=== PATIENT | male | born 1960 | race African-American/Black ===

== ENCOUNTER 2019-09-01 12:58 | Emergency (ER) | payer MEDICARE, OTHER ==
[~2019-09-01] VITALS: Ht 175.3 cm; Wt 91.0 kg
[~2019-09-01 12:58] MED LIST: ALBU18HF2 IH; ALBU5SOL6; AMBIEN; ATROVUD; COMBIV; FLUT1DIS; METF-415 PO; TIOT18CA3
[2019-09-01] MEDS ORDERED: ALBUTEROL (0.083%) 2.5MG/3ML NEB HHN STA (13:37)
[2019-09-01] MEDS ORDERED: METHYLPREDNISOLONE SOD SUCC 125 MG/2 ML VIAL IV STA (13:37)
[2019-09-01] MEDS ORDERED: IPRATROPIUM BROMIDE (0.02%) 0.5MG/2.5ML NEB HHN STA (13:37)
[2019-09-01 14:46] LABS: HEMATOCRIT. 43.7 % (42.0-52.0); HEMOGLOBIN. 14.3 g/dL (14.0-18.0); MEAN CORPUSCULAR HEMOGLOBIN 26.5 pg (28.0-32.0); MEAN CORPUSCULAR VOLUME 81.3 fL (80.0-94.0); PLATELET 209 x1000/uL (130-400); RED BLOOD CELL COUNT 5.38 mill/uL (4.7-6.1); RED CELL DISTRIBUTION WIDTH 15.2 % (11.6-14.6)
[2019-09-01 14:54] LABS: CHLORIDE 109 mEq/L (98-107)
[2019-09-01 17:04] LABS: ATYPICAL LYMPHOCYTES 3
[2019-09-01 17:05] LABS: PLATELET ESTIMATE NORMAL
[2019-09-01 17:20] VITALS: BP 131/62
== END 2019-09-01 17:38 | disposition home or self-care (01) ==
LOC: ER 12:58
DX: J44.1 Chronic obstructive pulmonary disease with (acute) exacerbation (principal); E11.9 Type 2 diabetes mellitus without complications; Z79.899 Other long term (current) drug therapy
CPT/HCPCS: 36415; 71045; 80053; 85025; 93005; 94644; 96374; 99285; J2930; J7611; Z7610

== ENCOUNTER 2019-10-19 23:31 | Emergency (ER) | payer MEDICARE ==
[~2019-10-19] VITALS: Ht 177.8 cm; Wt 87.1 kg
[2019-10-20] MEDS ORDERED: ALBUTEROL (0.083%) 2.5MG/3ML NEB HHN STA (01:01)
[2019-10-20] MEDS ORDERED: IPRATROPIUM BROMIDE (0.02%) 0.5MG/2.5ML NEB HHN STA (01:01)
[2019-10-20] MEDS ORDERED: PREDNISONE 20MG TABLET PO STA (01:01)
[2019-10-20] MEDS ORDERED: ACETAMINOPHEN WITH CODEINE 300/30MG TABLET PO ONE (01:15)
[2019-10-20 03:50] VITALS: BP 103/76
== END 2019-10-20 03:52 | disposition home or self-care (01) ==
LOC: ER 23:31
DX: J44.1 Chronic obstructive pulmonary disease with (acute) exacerbation (principal)
CPT/HCPCS: 71045; 82962; 93005; 94640; 99284; J7512; J7611; Z7610

== ENCOUNTER 2020-12-03 08:32 | Emergency (ER) | payer MEDICAID, MEDICARE, OTHER ==
[~2020-12-03] VITALS: Ht 177.8 cm; Wt 69.0 kg
[2020-12-03 08:38] VITALS: BP 132/94
[2020-12-03] MEDS ORDERED: GABAPENTIN 100MG CAPSULE PO ONE (09:00)
[2020-12-03] MEDS ORDERED: GABAPENTIN 400MG CAPSULE PO SCH (09:15)
[2020-12-03 09:25] LABS: HEMATOCRIT. 45.5 % (42.0-52.0); MEAN CORPUSCULAR HEMOGLOBIN 29.2 pg (28.0-32.0); MEAN CORPUSCULAR VOLUME 88.4 fL (80.0-94.0); MEAN PLATELET VOLUME 10.3 fl (7.4-10.4); PLATELET 210 x1000/uL (130-400); RED BLOOD CELL COUNT 5.14 mill/uL (4.7-6.1); RED CELL DISTRIBUTION WIDTH 14.3 % (11.6-14.6)
[2020-12-03 09:31] LABS: CHLORIDE 104 mEq/L (98-107)
[2020-12-03 10:05] LABS: PLATELET ESTIMATE NORMAL
== END 2020-12-03 10:12 | disposition home or self-care (01) ==
LOC: ER 09:05
DX: R63.4 Abnormal weight loss (principal); E11.40 Type 2 diabetes mellitus with diabetic neuropathy, unspecified; J44.9 Chronic obstructive pulmonary disease, unspecified; R03.0 Elevated blood-pressure reading, without diagnosis of hypertension
CPT/HCPCS: 36415; 71045; 80053; 85025; 93005; 99285

== ENCOUNTER 2020-12-28 11:03 | Emergency (ER) | payer OTHER ==
[~2020-12-28] VITALS: Ht 177.8 cm; Wt 69.0 kg
[2020-12-28] MEDS ORDERED: METHYLPREDNISOLONE SOD SUCC 125 MG/2 ML VIAL IV STA (11:48)
[2020-12-28] MEDS ORDERED: IPRATROPIUM BROMIDE (0.02%) 0.5MG/2.5ML NEB HHN STA (11:48)
[2020-12-28] MEDS ORDERED: KETOROLAC 15MG/ML VIAL IV ONE (12:00)
[2020-12-28] MEDS ORDERED: MAGNESIUM 2 G PREMIX 50 ML IV ONE (12:00)
[2020-12-28] MEDS: ALBUTEROL (0.083%) 2.5MG/3ML NEB HHN SCH ×3 (13:04→14:04)
[2020-12-28] MEDS ORDERED: P50 MT (14:42)
[2020-12-28] MEDS ORDERED: ALBU6.7H9 INH (14:42)
[2020-12-28] MEDS ORDERED: GABA800T97 MT (14:42)
[2020-12-28 14:59] VITALS: BP 111/72
== END 2020-12-28 15:51 | disposition home or self-care (01) ==
LOC: ER 11:30
DX: J44.1 Chronic obstructive pulmonary disease with (acute) exacerbation (principal); E11.9 Type 2 diabetes mellitus without complications; Z98.890 Other specified postprocedural states; Z79.84 Long term (current) use of oral hypoglycemic drugs
CPT/HCPCS: 71045; 93005; 94640; 96365; 96366; 96375; 99285; J1885; J2930; J3475; Z7610

== ENCOUNTER 2020-12-30 17:25 | Inpatient (IN) | payer OTHER ==
[~2020-12-30] VITALS: Ht 177.8 cm; Wt 70.8 kg
[~2020-12-30 17:25] MED LIST changes: +ALBU6.7H9 INH; +GABA800T97 MT; +P50 MT
[2020-12-30] MEDS ORDERED: IPRATROPIUM BROMIDE (0.02%) 0.5MG/2.5ML NEB HHN STA (18:00)
[2020-12-30] MEDS ORDERED: METHYLPREDNISOLONE SOD SUCC 125 MG/2 ML VIAL IV STA (18:00)
[2020-12-30] MEDS ORDERED: MAGNESIUM 2 G PREMIX 50 ML IV ONE (18:00)
[2020-12-30] MEDS ORDERED: GABAPENTIN 400MG CAPSULE PO ONE (18:00)
[2020-12-30] MEDS ORDERED: ALBUTEROL (0.083%) 2.5MG/3ML NEB HHN SCH (18:00)
[2020-12-30] MEDS ORDERED: DOXYCYCLINE HYCLATE 100 MG/VIAL IV ONE (19:15)
[2020-12-30 19:59] LABS: BASOPHILS % 1.3 % (0.0-2.0); EOSINOPHILS % 12.2 % (0.0-5.0); LYMPHOCYTES % 16.5 % (20.0-50.0); MEAN CORPUSCULAR HEMOGLOBIN 28.4 pg (28.0-32.0); MEAN CORPUSCULAR VOLUME 88.7 fL (80.0-94.0); MEAN PLATELET VOLUME 9.7 fl (7.4-10.4); MONOCYTES % 4.2 % (2.0-8.0); NEUTROPHILS % 65.8 % (40.0-76.0); PLATELET 216 x1000/uL (130-400); RED BLOOD CELL COUNT 5.31 mill/uL (4.7-6.1); RED CELL DISTRIBUTION WIDTH 15.3 % (11.6-14.6)
[2020-12-30] MEDS ORDERED: DOXYCYCLINE 100MG in DEXTROSE 5% WATER 100ML IV NR (20:00)
[2020-12-30 20:03] LABS: CHLORIDE 106 mEq/L (98-107)
[2020-12-30] MEDS ORDERED: KETOROLAC 15MG/ML VIAL IV ONE (23:30)
[2020-12-31] VITALS (8 sets, daily range): BP systolic 95–151; BP diastolic 74–98
[2020-12-31] MEDS ORDERED: DEXTROSE 50% WATER 50ML SYRINGE IV PRN ×2 (02:15)
[2020-12-31] MEDS ORDERED: ZOLPIDEM TARTRATE 5MG TABLET PO PRN (02:15)
[2020-12-31] MEDS ORDERED: LEVOFLOXACIN 500MG PREMIX 100 ML IV SCH (04:00)
[2020-12-31] MEDS: IPRATROPIUM/ALBUTEROL 0.5-3(2.5)MG/3ML NEB HHN SCH ×5 (04:09→23:48)
[2020-12-31] MEDS: METHYLPREDNISOLONE SOD SUCC 125 MG/2 ML VIAL IV SCH ×3 (06:00→21:49)
[2020-12-31 06:44] LABS: BASOPHILS % 0.6 % (0.0-2.0); EOSINOPHILS % 0.2 % (0.0-5.0); HEMATOCRIT. 42.3 % (42.0-52.0); LYMPHOCYTES % 10.4 % (20.0-50.0); MEAN CORPUSCULAR HEMOGLOBIN 29.3 pg (28.0-32.0); MEAN CORPUSCULAR VOLUME 88.6 fL (80.0-94.0); MEAN PLATELET VOLUME 10.5 fl (7.4-10.4); MONOCYTES % 4.9 % (2.0-8.0); NEUTROPHILS % 83.9 % (40.0-76.0); PLATELET 238 x1000/uL (130-400); RED BLOOD CELL COUNT 4.77 mill/uL (4.7-6.1); RED CELL DISTRIBUTION WIDTH 15.2 % (11.6-14.6)
[2020-12-31 06:55] LABS: CHLORIDE 103 mEq/L (98-107)
[2020-12-31 07:03] LABS: LDL CHOLESTEROL 96 mg/dL (5-100)
[2020-12-31 07:04] LABS: HDL CHOLESTEROL 97 mg/dL (40-59)
[2020-12-31] MEDS: BLOOD SUGAR DIAGNOSTIC STRIP TEST SCH ×4 (08:01→20:22)
[2020-12-31] MEDS: INSULIN LISPRO 100 UNITS/ML SUBCUT SCH ×4 (08:33→20:39)
[2020-12-31] MEDS: ASPIRIN 81MG TABLET PO SCH (08:47)
[2020-12-31] MEDS: TRAMADOL 50MG TABLET PO SCH ×2 (08:47→17:00)
[2020-12-31] MEDS: GABAPENTIN 400MG CAPSULE PO SCH ×3 (08:48→17:00)
[2020-12-31] MEDS ORDERED: MEDICATION NOT ON FORMULARY EA (Gabapentin 1 TAB) MT SCH (09:00)
[2020-12-31] MEDS ORDERED: GABAPENTIN 400MG CAPSULE PO SCH (09:00)
[2020-12-31] MEDS: BUDESONIDE 0.5MG/2ML NEB HHN SCH ×2 (09:20→21:08)
[2020-12-31] MEDS: DIATR MEGLU/DIATRIZOATE SOLN 30ML PO NR (17:28)
[2020-12-31] MEDS: HYDROCODONE/ACETAMINOPHEN 5/325MG TABLET PO PRN ×2 (17:34→22:34)
[2020-12-31] MEDS ORDERED: IOHEXOL-300 100 ML BOTTLE ONE (19:31)
[2020-12-31] MEDS: ENOXAPARIN 40MG/0.4ML SYR SUBCUT SCH (20:35)
[2020-12-31] MEDS: ATORVASTATIN CALCIUM 20MG TABLET PO SCH (20:35)
[2021-01-01] VITALS (11 sets, daily range): BP systolic 99–138; BP diastolic 56–96
[2021-01-01] MEDS: METHYLPREDNISOLONE SOD SUCC 125 MG/2 ML VIAL IV SCH ×3 (06:07→22:00)
[2021-01-01 06:42] LABS: HEMOGLOBIN. 13.4 g/dL (14.0-18.0); MEAN CORPUSCULAR HEMOGLOBIN 28.6 pg (28.0-32.0); MEAN PLATELET VOLUME 10.1 fl (7.4-10.4); PLATELET 245 x1000/uL (130-400); RED BLOOD CELL COUNT 4.66 mill/uL (4.7-6.1); RED CELL DISTRIBUTION WIDTH 15.3 % (11.6-14.6)
[2021-01-01] MEDS: HYDROCODONE/ACETAMINOPHEN 5/325MG TABLET PO PRN ×2 (06:53→22:43)
[2021-01-01 06:54] LABS: CHLORIDE 100 mEq/L (98-107)
[2021-01-01 07:02] LABS: PHOSPHORUS 3.8 mg/dL (2.5-4.9)
[2021-01-01 07:19] LABS: HEPATITIS B SURFACE ANTIGEN NEGATIVE
[2021-01-01 07:28] LABS: VITAMIN B12 SERUM 566 pg/mL (211-911)
[2021-01-01 07:30] LABS: FOLIC ACID (FOLATE) SERUM > 20.00 ng/mL (>5.38)
[2021-01-01 07:49] LABS: HEPATITIS A AB IGM NEGATIVE (NEGATIVE)
[2021-01-01] MEDS: BLOOD SUGAR DIAGNOSTIC STRIP TEST SCH ×4 (07:55→21:54)
[2021-01-01] MEDS: INSULIN LISPRO 100 UNITS/ML SUBCUT SCH ×4 (08:05→22:01)
[2021-01-01] MEDS: ASPIRIN 81MG TABLET PO SCH (08:06)
[2021-01-01] MEDS: PANTOPRAZOLE SODIUM 40 MG/VIAL IV SCH (08:06)
[2021-01-01] MEDS: GABAPENTIN 400MG CAPSULE PO SCH ×3 (08:06→22:00)
[2021-01-01] MEDS: TRAMADOL 50MG TABLET PO SCH ×2 (08:06→18:04)
[2021-01-01] MEDS ORDERED: NON FORMULARY PATIENT HOME MED ORI SCH (09:00)
[2021-01-01] MEDS: BUDESONIDE 0.5MG/2ML NEB HHN SCH (09:12)
[2021-01-01] MEDS: IPRATROPIUM/ALBUTEROL 0.5-3(2.5)MG/3ML NEB HHN SCH ×3 (09:12→20:36)
[2021-01-01 13:17] LABS: PLATELET ESTIMATE NORMAL
[2021-01-01] MEDS ORDERED: INSULIN GLARGINE UD 100 UNITS/ML SYR SUBCUT NR (14:00)
[2021-01-01] MEDS ORDERED: P20 MT (16:43)
[2021-01-01] MEDS ORDERED: IPRA4AER INH (16:43)
[2021-01-01] MEDS ORDERED: ALBU18HF2 IH (16:43)
[2021-01-01] MEDS ORDERED: UMEC1DIS INH (16:43)
[2021-01-01] MEDS: DIATR MEGLU/DIATRIZOATE SOLN 30ML PO NR (17:50)
[2021-01-01] MEDS: ENOXAPARIN 40MG/0.4ML SYR SUBCUT SCH (18:04)
[2021-01-01] MEDS: ATORVASTATIN CALCIUM 20MG TABLET PO SCH (22:00)
[2021-01-02] VITALS (10 sets, daily range): BP systolic 110–158; BP diastolic 65–102
[2021-01-02] MEDS: IPRATROPIUM/ALBUTEROL 0.5-3(2.5)MG/3ML NEB HHN SCH ×4 (00:40→13:05)
[2021-01-02] MEDS: METHYLPREDNISOLONE SOD SUCC 125 MG/2 ML VIAL IV SCH ×2 (05:32→13:00)
[2021-01-02] MEDS: GABAPENTIN 400MG CAPSULE PO SCH ×2 (05:32→13:00)
[2021-01-02] MEDS: BLOOD SUGAR DIAGNOSTIC STRIP TEST SCH ×2 (07:48→12:17)
[2021-01-02 07:58] LABS: *AMPHETAMINES SCREEN URINE NEGATIVE (NEGATIVE); *BARBITURATES SCREEN URINE NEGATIVE (NEGATIVE); *BENZODIAZEPINES SCREEN URINE NEGATIVE (NEGATIVE)
[2021-01-02 08:00] LABS: *COCAINE SCREEN URINE NEGATIVE (NEGATIVE); METHADONE URINE SCREEN NEGATIVE (NEGATIVE); OPIATES URINE SCREEN NEGATIVE (NEGATIVE); PHENCYCLIDINE URINE SCREEN NEGATIVE (NEGATIVE)
[2021-01-02 08:01] LABS: CANNABINOID URINE SCREEN PRESUMTIVE POSITIVE (NEGATIVE)
[2021-01-02] MEDS: TRAMADOL 50MG TABLET PO SCH (08:06)
[2021-01-02] MEDS: ASPIRIN 81MG TABLET PO SCH (08:07)
[2021-01-02] MEDS: PANTOPRAZOLE SODIUM 40 MG/VIAL IV SCH (08:07)
[2021-01-02] MEDS: INSULIN LISPRO 100 UNITS/ML SUBCUT SCH ×2 (08:12→12:53)
[2021-01-02 08:53] LABS: HEMATOCRIT. 42.7 % (42.0-52.0); HEMOGLOBIN. 13.5 g/dL (14.0-18.0); MEAN CORPUSCULAR HEMOGLOBIN 27.9 pg (28.0-32.0); MEAN CORPUSCULAR VOLUME 88.2 fL (80.0-94.0); MEAN PLATELET VOLUME 10.2 fl (7.4-10.4); PLATELET 222 x1000/uL (130-400); RED BLOOD CELL COUNT 4.84 mill/uL (4.7-6.1); RED CELL DISTRIBUTION WIDTH 15.2 % (11.6-14.6)
[2021-01-02] MEDS: HYDROCODONE/ACETAMINOPHEN 5/325MG TABLET PO PRN (09:26)
[2021-01-02 09:31] LABS: CHLORIDE 98 mEq/L (98-107)
[2021-01-02] MEDS: BUDESONIDE 0.5MG/2ML NEB HHN SCH (09:35)
[2021-01-02 10:38] LABS: PLATELET ESTIMATE NORMAL
[2021-01-03 09:06] LABS: SACCHAROMYCES CEREVISIAE IGG 43.9 Units (0.0-24.9); SACCHAROMYCES CEREVISIAE IGM 29.4 Units (0.0-24.9)
[2021-01-03 13:07] LABS: ATYPICAL pANCA <1:20 titer (Neg:<1:20)
== END 2021-01-02 18:42 | disposition home or self-care (01) | DRG 244 ==
LOC: ER 17:25 → 5EST 22:08 → EDBEDREQSVC 22:32 → EDBEDREQ 22:32 → EDBEDREQTM 22:32 → ENRESERV 23:20
PROVIDERS: ADMIT Internal Medicine; ATTEND Internal Medicine
PROC: 5A09357 Assistance with Respiratory Ventilation, Less than 24 Consecutive Hours, Continuous Positive Airway Pressure (ICD-10-PCS; principal; 2020-12-30)
DX: K57.90 Diverticulosis of intestine, part unspecified, without perforation or abscess without bleeding (principal); J44.1 Chronic obstructive pulmonary disease with (acute) exacerbation; J96.01 Acute respiratory failure with hypoxia; E11.40 Type 2 diabetes mellitus with diabetic neuropathy, unspecified; E53.8 Deficiency of other specified B group vitamins; R74.01 Elevation of levels of liver transaminase levels; R19.7 Diarrhea, unspecified; Z60.2 Problems related to living alone; Z82.49 Family history of ischemic heart disease and other diseases of the circulatory system; Z83.3 Family history of diabetes mellitus; Z86.16 Personal history of COVID-19; Z87.11 Personal history of peptic ulcer disease; Z87.442 Personal history of urinary calculi; Z87.891 Personal history of nicotine dependence; Z79.899 Other long term (current) drug therapy; R65.10 Systemic inflammatory response syndrome (SIRS) of non-infectious origin without acute organ dysfunction
CPT/HCPCS: 36415; 71045; 74177; 76700; 80048; 80053; 80061; 80305; 82607; 82705; 82746; 82962; 83036; 83735; 83880; 84100; 84484; 85025; 86256; 86671; 86705; 86709; 86803; 87015; 87045; 87340; 87427; 87449; 87493; 89055; 93005; 94640; 94660; 99291; C9113; J1650; J1815; J1885; J1956; J2930; J3475; J3490; J7060; J7626; Q9963; Q9967

== ENCOUNTER 2021-02-08 11:01 | Emergency (ER) | payer OTHER, MEDICAID ==
[~2021-02-08] VITALS: Ht 177.8 cm; Wt 75.0 kg
[~2021-02-08 11:01] MED LIST changes: +IPRA4AER INH; +P20 MT; +UMEC1DIS INH
[2021-02-08] MEDS ORDERED: SODIUM CHLORIDE 0.9% 1,000 ML IV ONE (11:15)
[2021-02-08] MEDS ORDERED: METHYLPREDNISOLONE SOD SUCC 125 MG/2 ML VIAL IV STA (11:15)
[2021-02-08] MEDS ORDERED: ALBUTEROL (0.083%) 2.5MG/3ML NEB HHN STA (11:15)
[2021-02-08] MEDS ORDERED: HYDROCODONE/ACETAMINOPHEN 5/325MG TABLET PO STA (11:15)
[2021-02-08] MEDS ORDERED: IPRATROPIUM BROMIDE (0.02%) 0.5MG/2.5ML NEB HHN STA (11:15)
[2021-02-08 11:48] LABS: HEMOGLOBIN. 14.4 g/dL (14.0-18.0); MEAN CORPUSCULAR HEMOGLOBIN 29.4 pg (28.0-32.0); MEAN CORPUSCULAR VOLUME 87.8 fL (80.0-94.0); MEAN PLATELET VOLUME 9.4 fl (7.4-10.4); PLATELET 159 x1000/uL (130-400); RED CELL DISTRIBUTION WIDTH 15.6 % (11.6-14.6)
[2021-02-08 11:55] LABS: CHLORIDE 107 mEq/L (98-107)
[2021-02-08 12:49] LABS: PLATELET ESTIMATE NORMAL
[2021-02-08] MEDS ORDERED: ALBUTEROL (0.5%) 2.5MG/0.5ML NEB HHN ONE (13:15)
[2021-02-08] MEDS ORDERED: FLUT1DIS3 INH (13:21)
[2021-02-08] MEDS ORDERED: IPRA4AER INH (13:26)
[2021-02-08] MEDS ORDERED: MED4 MT (13:26)
[2021-02-08] MEDS ORDERED: DOXY100C2 MT (13:27)
[2021-02-08] MEDS ORDERED: ALBU18HF2 IH (13:28)
[2021-02-08 15:15] VITALS: BP 133/74
[2021-02-22] MEDS ORDERED: P50 MT (21:25)
[2021-02-22] MEDS ORDERED: AZIT250T12 MT (21:25)
== END 2021-02-08 15:26 | disposition home or self-care (01) ==
LOC: ER 11:01
DX: R06.02 Shortness of breath (principal); R05 Cough; J44.9 Chronic obstructive pulmonary disease, unspecified; E11.9 Type 2 diabetes mellitus without complications; Z79.899 Other long term (current) drug therapy
CPT/HCPCS: 36415; 71045; 80053; 83605; 83880; 84484; 85025; 87040; 93005; 94640; 96361; 96374; 99285; J2930; J7030; Z7610

== ENCOUNTER 2021-03-10 05:22 | Emergency (ER) | payer OTHER ==
[~2021-03-10] VITALS: Ht 177.8 cm; Wt 72.0 kg
[~2021-03-10 05:22] MED LIST changes: +AZIT250T12 MT; +DOXY100C2 MT; +FLUT1DIS3 INH; +MED4 MT
[2021-03-10] MEDS ORDERED: METHYLPREDNISOLONE SOD SUCC 125 MG/2 ML VIAL IV STA (05:39)
[2021-03-10] MEDS ORDERED: ALBUTEROL (0.083%) 2.5MG/3ML NEB HHN STA (05:39)
[2021-03-10] MEDS ORDERED: MAGNESIUM 2 G PREMIX 50 ML IV STA (05:39)
[2021-03-10] MEDS ORDERED: IPRATROPIUM BROMIDE (0.02%) 0.5MG/2.5ML NEB HHN STA (05:39)
[2021-03-10 05:59] LABS: BASOPHILS % 1.4 % (0.0-2.0); HEMATOCRIT. 41.7 % (42.0-52.0); LYMPHOCYTES % 26.4 % (20.0-50.0); MEAN CORPUSCULAR HEMOGLOBIN 29.6 pg (28.0-32.0); MEAN CORPUSCULAR VOLUME 88.4 fL (80.0-94.0); MEAN PLATELET VOLUME 9.2 fl (7.4-10.4); MONOCYTES % 8.8 % (2.0-8.0); NEUTROPHILS % 53.4 % (40.0-76.0); PLATELET 188 x1000/uL (130-400); RED BLOOD CELL COUNT 4.72 mill/uL (4.7-6.1); RED CELL DISTRIBUTION WIDTH 15.1 % (11.6-14.6)
[2021-03-10 06:00] LABS: CHLORIDE 107 mEq/L (98-107)
[2021-03-10] MEDS ORDERED: AZIT250T12 MT (08:03)
[2021-03-10] MEDS ORDERED: P50 MT (08:03)
[2021-03-10] MEDS ORDERED: ALBU6.7H9 INH (08:03)
[2021-03-10 08:27] VITALS: BP 126/85
== END 2021-03-10 08:33 | disposition home or self-care (01) ==
LOC: ER 05:22
DX: J44.1 Chronic obstructive pulmonary disease with (acute) exacerbation (principal); E11.9 Type 2 diabetes mellitus without complications; Z79.899 Other long term (current) drug therapy; Z98.890 Other specified postprocedural states
CPT/HCPCS: 36415; 71045; 80053; 83880; 84484; 85025; 93005; 94644; 96365; 96375; 99285; J2930; J3475; Z7610

== ENCOUNTER 2021-03-18 06:55 | Emergency (ER) | payer OTHER ==
[~2021-03-18] VITALS: Ht 160 cm; Wt 75.0 kg
[2021-03-18] MEDS ORDERED: IPRATROPIUM BROMIDE (0.02%) 0.5MG/2.5ML NEB HHN STA (07:43)
[2021-03-18] MEDS ORDERED: ALBUTEROL (0.083%) 2.5MG/3ML NEB HHN STA (07:43)
[2021-03-18] MEDS ORDERED: METHYLPREDNISOLONE SOD SUCC 125 MG/2 ML VIAL IV STA (07:43)
[2021-03-18] MEDS ORDERED: SODIUM CHLORIDE 0.9% 1,000 ML IV ONE (08:00)
[2021-03-18 08:10] LABS: BASOPHILS % 1.4 % (0.0-2.0); CHLORIDE 106 mEq/L (98-107); EOSINOPHILS % 4.6 % (0.0-5.0); HEMOGLOBIN. 13.9 g/dL (14.0-18.0); LYMPHOCYTES % 24.2 % (20.0-50.0); MEAN CORPUSCULAR HEMOGLOBIN 29.2 pg (28.0-32.0); MEAN CORPUSCULAR VOLUME 88.1 fL (80.0-94.0); MEAN PLATELET VOLUME 9.7 fl (7.4-10.4); MONOCYTES % 11.2 % (2.0-8.0); NEUTROPHILS % 58.6 % (40.0-76.0); PLATELET 205 x1000/uL (130-400); RED BLOOD CELL COUNT 4.77 mill/uL (4.7-6.1); RED CELL DISTRIBUTION WIDTH 14.4 % (11.6-14.6)
[2021-03-18] MEDS ORDERED: P20 MT (09:07)
[2021-03-18] MEDS ORDERED: ALBU6.7H9 INH (09:07)
[2021-03-18 09:22] VITALS: BP 115/73
== END 2021-03-18 09:21 | disposition home or self-care (01) ==
LOC: ER 06:55
DX: J44.1 Chronic obstructive pulmonary disease with (acute) exacerbation (principal); R11.2 Nausea with vomiting, unspecified; R07.9 Chest pain, unspecified; I95.9 Hypotension, unspecified; E11.9 Type 2 diabetes mellitus without complications; E86.0 Dehydration; Z98.890 Other specified postprocedural states; Z87.891 Personal history of nicotine dependence; Z79.899 Other long term (current) drug therapy
CPT/HCPCS: 36415; 71045; 80053; 85025; 93005; 94640; 96361; 96374; 99285; J2930; J7030; Z7610

== ENCOUNTER 2021-04-07 13:48 | Emergency (ER) | payer OTHER ==
[~2021-04-07] VITALS: Ht 177.8 cm; Wt 80.0 kg
[2021-04-07] MEDS ORDERED: ALBUTEROL (0.083%) 2.5MG/3ML NEB HHN STA (14:10)
[2021-04-07] MEDS ORDERED: METHYLPREDNISOLONE SOD SUCC 125 MG/2 ML VIAL IV STA (14:10)
[2021-04-07] MEDS ORDERED: IPRATROPIUM BROMIDE (0.02%) 0.5MG/2.5ML NEB HHN STA (14:10)
[2021-04-07 14:42] LABS: HEMATOCRIT. 38.8 % (42.0-52.0); HEMOGLOBIN. 13.1 g/dL (14.0-18.0); MEAN CORPUSCULAR HEMOGLOBIN 29.8 pg (28.0-32.0); MEAN PLATELET VOLUME 9.7 fl (7.4-10.4); PLATELET 170 x1000/uL (130-400)
[2021-04-07 14:44] LABS: CHLORIDE 109 mEq/L (98-107)
[2021-04-07 16:03] LABS: PLATELET ESTIMATE NORMAL
[2021-04-07] MEDS ORDERED: ALBUTEROL (0.083%) 2.5MG/3ML NEB ONE (16:21)
[2021-04-07] MEDS ORDERED: DOCUSATE SODIUM 100MG CAPSULE PO PRN (18:45)
[2021-04-07] MEDS ORDERED: CLONIDINE 0.1MG TABLET PO PRN (18:45)
[2021-04-07] MEDS ORDERED: LORAZEPAM 0.5MG TABLET PO PRN (18:45)
[2021-04-07] MEDS ORDERED: ONDANSETRON HCL 4MG/2ML INJ IV PRN (18:45)
[2021-04-07] MEDS ORDERED: HYDROCODONE/ACETAMINOPHEN 5/325MG TABLET PO PRN (18:45)
[2021-04-07] MEDS ORDERED: ACETAMINOPHEN 325MG TABLET PO PRN ×2 (18:45)
[2021-04-07] MEDS ORDERED: IPRATROPIUM/ALBUTEROL 0.5-3(2.5)MG/3ML NEB HHN PRN (18:45)
[2021-04-07 19:41] VITALS: BP 107/65
[2021-04-07] MEDS ORDERED: METHYLPREDNISOLONE SOD SUCC 40 MG/ML VIAL IV SCH (20:00)
== END 2021-04-07 19:45 | disposition left against medical advice (07) ==
LOC: ER 14:28 → EDBEDREQ 16:31 → EDBEDREQTM 16:31 → EDBEDREQ 17:47 → EDBEDREQTM 17:47 → CANRESERV 19:18 → ENRESERV 19:18 → ER 19:45 → CANBEDREQ 20:01
DX: J44.1 Chronic obstructive pulmonary disease with (acute) exacerbation (principal); E11.9 Type 2 diabetes mellitus without complications; Z79.899 Other long term (current) drug therapy
CPT/HCPCS: 36415; 71045; 80053; 83880; 84484; 85025; 93005; 94640; 96374; 99285; J2930; Z7610

== ENCOUNTER 2021-05-07 04:26 | Emergency (ER) | payer OTHER ==
[~2021-05-07] VITALS: Ht 177.8 cm; Wt 75.0 kg
[2021-05-07] MEDS ORDERED: MAGNESIUM 2 G PREMIX 50 ML IV STA (04:42)
[2021-05-07] MEDS ORDERED: IPRATROPIUM BROMIDE (0.02%) 0.5MG/2.5ML NEB HHN STA (04:42)
[2021-05-07] MEDS ORDERED: ALBUTEROL (0.083%) 2.5MG/3ML NEB HHN STA (04:42)
[2021-05-07] MEDS ORDERED: METHYLPREDNISOLONE SOD SUCC 125 MG/2 ML VIAL IV STA (04:42)
[2021-05-07] MEDS ORDERED: LEVOFLOXACIN 750MG PREMIX 150 ML IV STA (04:42)
[2021-05-07 04:55] LABS: EOSINOPHILS % 8.3 % (0.0-5.0); HEMOGLOBIN. 14.5 g/dL (14.0-18.0); MEAN CORPUSCULAR HEMOGLOBIN 29.9 pg (28.0-32.0); MEAN CORPUSCULAR VOLUME 86.8 fL (80.0-94.0); MEAN PLATELET VOLUME 9.6 fl (7.4-10.4); MONOCYTES % 12.9 % (2.0-8.0); NEUTROPHILS % 46.8 % (40.0-76.0); PLATELET 174 x1000/uL (130-400); RED BLOOD CELL COUNT 4.84 mill/uL (4.7-6.1); RED CELL DISTRIBUTION WIDTH 13.5 % (11.6-14.6)
[2021-05-07 05:01] LABS: CHLORIDE 104 mEq/L (98-107)
[2021-05-07] MEDS ORDERED: MORPHINE SULFATE 4 MG/ML CPJ (NOT FOR IM USE) IV ONE (06:30)
[2021-05-07] MEDS ORDERED: GABAPENTIN 300MG CAPSULE PO SCH (06:30)
[2021-05-07] MEDS ORDERED: HYDROCODONE/ACETAMINOPHEN 10/325MG TABLET PO PRN (07:00)
[2021-05-07] MEDS ORDERED: GABAPENTIN 400MG CAPSULE PO PRN (07:00)
[2021-05-07] MEDS ORDERED: AZIT250T12 MT (07:46)
[2021-05-07] MEDS ORDERED: P50 MT (07:46)
[2021-05-07] MEDS ORDERED: ALBU6.7H9 INH (07:46)
[2021-05-07] MEDS ORDERED: FLUT1DIS3 INH (07:46)
[2021-05-07 08:30] VITALS: BP 122/82
== END 2021-05-07 09:30 | disposition home or self-care (01) ==
LOC: ER 04:26 → CANBEDREQ 08:22 → ER 09:30
DX: J44.1 Chronic obstructive pulmonary disease with (acute) exacerbation (principal); E11.9 Type 2 diabetes mellitus without complications; Z79.899 Other long term (current) drug therapy
CPT/HCPCS: 36415; 71045; 80053; 83880; 84484; 85025; 93005; 96365; 96368; 96375; 99285; J1956; J2270; J2930; J3475; Z7610

== ENCOUNTER 2021-12-06 06:11 | Emergency (ER) | payer MEDICAID, OTHER ==
[~2021-12-06] VITALS: Ht 177.8 cm; Wt 68.0 kg
[~2021-12-06 06:11] MED LIST changes: -DOXY100C2 MT; +DOXY100C5 MT
[2021-12-06] MEDS ORDERED: ALBUTEROL (0.083%) 2.5MG/3ML NEB HHN STA (06:38)
[2021-12-06] MEDS ORDERED: GABAPENTIN 100MG CAPSULE PO ONE (06:45)
[2021-12-06] MEDS ORDERED: KETOROLAC 30MG/ML VIAL IV ONE (06:45)
[2021-12-06] MEDS ORDERED: GABAPENTIN 400MG CAPSULE PO SCH (07:15)
[2021-12-06 07:19] LABS: BASOPHILS % 0.4 % (0.0-2.0); HEMATOCRIT. 44.9 % (42.0-52.0); HEMOGLOBIN. 14.8 g/dL (14.0-18.0); LYMPHOCYTES % 29.5 % (20.0-50.0); MEAN CORPUSCULAR HEMOGLOBIN 29.1 pg (28.0-32.0); MEAN CORPUSCULAR VOLUME 88.3 fL (80.0-94.0); MEAN PLATELET VOLUME 9.4 fl (7.4-10.4); MONOCYTES % 9.2 % (2.0-8.0); NEUTROPHILS % 55.9 % (40.0-76.0); PLATELET 263 x1000/uL (130-400); RED BLOOD CELL COUNT 5.09 mill/uL (4.7-6.1); RED CELL DISTRIBUTION WIDTH 14.9 % (11.6-14.6)
[2021-12-06 07:27] LABS: CHLORIDE 103 mEq/L (98-107)
[2021-12-06] MEDS ORDERED: T3 PO (08:29)
[2021-12-06] MEDS ORDERED: ALBU6.7H9 INH (08:29)
[2021-12-06] MEDS ORDERED: GABA800T97 PO (08:29)
[2021-12-06 08:58] VITALS: BP 127/86
== END 2021-12-06 09:23 | disposition home or self-care (01) ==
LOC: ER 06:11
DX: J20.9 Acute bronchitis, unspecified (principal); G62.9 Polyneuropathy, unspecified; E11.9 Type 2 diabetes mellitus without complications; Z79.899 Other long term (current) drug therapy; Z98.890 Other specified postprocedural states
CPT/HCPCS: 36415; 71045; 80053; 83880; 84484; 85025; 93005; 94640; 96374; 99285; J1885; Z7610; 94003

== ENCOUNTER 2021-12-17 07:23 | Emergency (ER) | payer OTHER ==
[~2021-12-17] VITALS: Ht 177.8 cm; Wt 66.0 kg
[~2021-12-17 07:23] MED LIST changes: +GABA800T97 PO; +T3 PO
[2021-12-17] MEDS ORDERED: IPRATROPIUM BROMIDE (0.02%) 0.5MG/2.5ML NEB HHN STA (07:48)
[2021-12-17] MEDS ORDERED: METHYLPREDNISOLONE SOD SUCC 125 MG/2 ML VIAL IV STA (07:48)
[2021-12-17] MEDS ORDERED: ALBUTEROL (0.083%) 2.5MG/3ML NEB HHN STA (07:48)
[2021-12-17 08:59] LABS: HEMATOCRIT. 44.3 % (42.0-52.0); HEMOGLOBIN. 14.7 g/dL (14.0-18.0); MEAN CORPUSCULAR HEMOGLOBIN 29.5 pg (28.0-32.0); MEAN CORPUSCULAR VOLUME 88.7 fL (80.0-94.0); MEAN PLATELET VOLUME 9.4 fl (7.4-10.4); PLATELET 253 x1000/uL (130-400); RED BLOOD CELL COUNT 4.99 mill/uL (4.7-6.1)
[2021-12-17 09:05] LABS: CHLORIDE 107 mEq/L (98-107)
[2021-12-17] MEDS ORDERED: ALBU6.7H9 INH (09:22)
[2021-12-17] MEDS ORDERED: GUAI355S6 MT (09:22)
[2021-12-17] MEDS ORDERED: P50 MT (09:22)
[2021-12-17] MEDS ORDERED: KETOROLAC 60MG/2ML VIAL IM ONE (09:30)
[2021-12-17 10:28] VITALS: BP 113/64
[2021-12-17 12:13] LABS: PLATELET ESTIMATE NORMAL
== END 2021-12-17 11:22 | disposition home or self-care (01) ==
LOC: ER 07:23
DX: R05.9 Cough, unspecified (principal); J44.1 Chronic obstructive pulmonary disease with (acute) exacerbation; E11.9 Type 2 diabetes mellitus without complications; F12.10 Cannabis abuse, uncomplicated; Z79.899 Other long term (current) drug therapy
CPT/HCPCS: 36415; 71045; 80053; 82962; 83880; 84484; 85025; 93005; 94640; 96372; 96374; 99285; J1885; J2930; Z7610

== ENCOUNTER 2021-12-26 13:25 | Emergency (ER) | payer OTHER ==
[~2021-12-26] VITALS: Ht 177.8 cm; Wt 70.0 kg
[~2021-12-26 13:25] MED LIST changes: +GUAI355S6 MT
[2021-12-26 13:35] VITALS: BP 92/51
[2021-12-26] MEDS ORDERED: ALBUTEROL (0.083%) 2.5MG/3ML NEB HHN STA (13:35)
[2021-12-26] MEDS ORDERED: IPRATROPIUM BROMIDE (0.02%) 0.5MG/2.5ML NEB HHN STA (13:35)
[2021-12-26] MEDS ORDERED: ASPIRIN 81MG TABLET PO ONE (13:45)
[2021-12-26 15:28] LABS: HEMATOCRIT. 41.4 % (42.0-52.0); HEMOGLOBIN. 13.9 g/dL (14.0-18.0); MEAN CORPUSCULAR HEMOGLOBIN 29.7 pg (28.0-32.0); MEAN CORPUSCULAR VOLUME 88.4 fL (80.0-94.0); MEAN PLATELET VOLUME 9.4 fl (7.4-10.4); PLATELET 201 x1000/uL (130-400); RED BLOOD CELL COUNT 4.68 mill/uL (4.7-6.1); RED CELL DISTRIBUTION WIDTH 14.8 % (11.6-14.6)
[2021-12-26 15:33] LABS: CHLORIDE 103 mEq/L (98-107)
[2021-12-26 16:07] LABS: PLATELET ESTIMATE NORMAL
[2021-12-26] MEDS ORDERED: ALBU6.7H9 INH (16:52)
[2021-12-26] MEDS ORDERED: AZIT250T12 MT (16:52)
[2021-12-26] MEDS ORDERED: GUAI-453 MT (16:52)
[2021-12-26] MEDS ORDERED: GABA-529 MT (16:52)
[2021-12-26] MEDS ORDERED: PRED10TA23 MT (16:52)
[2021-12-26] MEDS ORDERED: METHYLPREDNISOLONE SOD SUCC 125 MG/2 ML VIAL IV NR (17:00)
== END 2021-12-26 17:39 | disposition home or self-care (01) ==
LOC: ER 13:25
DX: J44.1 Chronic obstructive pulmonary disease with (acute) exacerbation (principal); F12.10 Cannabis abuse, uncomplicated; E11.9 Type 2 diabetes mellitus without complications; Z79.899 Other long term (current) drug therapy; Z98.890 Other specified postprocedural states; Z13.9 Encounter for screening, unspecified
CPT/HCPCS: 36415; 71045; 80053; 82962; 83880; 84484; 85025; 93005; 94640; 96374; 99285; J2930

== ENCOUNTER 2021-12-28 07:33 | Emergency (ER) | payer OTHER ==
[~2021-12-28] VITALS: Ht 177.8 cm; Wt 69.0 kg
[~2021-12-28 07:33] MED LIST changes: +GABA-529 MT; +GUAI-453 MT; +PRED10TA23 MT
[2021-12-28] MEDS ORDERED: GABA400C MT (07:52)
[2021-12-28] MEDS: GABAPENTIN 400MG CAPSULE PO ONE (08:14)
[2021-12-28 08:20] VITALS: BP 133/74
== END 2021-12-28 08:21 | disposition home or self-care (01) ==
LOC: ER 07:33
DX: G62.9 Polyneuropathy, unspecified (principal); E11.9 Type 2 diabetes mellitus without complications; J44.1 Chronic obstructive pulmonary disease with (acute) exacerbation; F12.10 Cannabis abuse, uncomplicated; Z98.890 Other specified postprocedural states; Z76.0 Encounter for issue of repeat prescription; Z79.899 Other long term (current) drug therapy
CPT/HCPCS: 99283

== ENCOUNTER 2022-01-19 13:18 | Emergency (ER) | payer MEDICAID, OTHER ==
[~2022-01-19] VITALS: Ht 177.8 cm; Wt 73.0 kg
[~2022-01-19 13:18] MED LIST changes: +GABA400C MT
[2022-01-19] MEDS ORDERED: IPRATROPIUM BROMIDE (0.02%) 0.5MG/2.5ML NEB HHN STA (15:53)
[2022-01-19] MEDS ORDERED: METHYLPREDNISOLONE SOD SUCC 125 MG/2 ML VIAL IV STA (15:53)
[2022-01-19] MEDS ORDERED: ALBUTEROL (0.083%) 2.5MG/3ML NEB HHN STA (15:53)
[2022-01-19] MEDS ORDERED: ASPIRIN 81MG TABLET PO ONE (16:00)
[2022-01-19] MEDS ORDERED: NITROGLYCERIN 0.4MG TABLET SL SL PRN (16:00)
[2022-01-19] MEDS ORDERED: ALBUTEROL (0.5%) 2.5MG/0.5ML NEB HHN ONE (16:02)
[2022-01-19] MEDS ORDERED: ALBUTEROL (0.083%) 2.5MG/3ML NEB ONE (16:03)
[2022-01-19 16:33] LABS: HEMATOCRIT. 44.5 % (42.0-52.0); HEMOGLOBIN. 14.8 g/dL (14.0-18.0); MEAN CORPUSCULAR HEMOGLOBIN 30.2 pg (28.0-32.0); MEAN CORPUSCULAR VOLUME 90.9 fL (80.0-94.0); MEAN PLATELET VOLUME 9.3 fl (7.4-10.4); PLATELET 196 x1000/uL (130-400); RED CELL DISTRIBUTION WIDTH 15.1 % (11.6-14.6)
[2022-01-19 16:40] LABS: CHLORIDE 106 mEq/L (98-107)
[2022-01-19] MEDS ORDERED: GABAPENTIN 300MG CAPSULE PO ONE (17:15)
[2022-01-19 17:26] LABS: PLATELET ESTIMATE NORMAL
[2022-01-19 17:30] VITALS: BP 119/91
== END 2022-01-19 19:09 | disposition left against medical advice (07) ==
LOC: ER 13:18
DX: J44.1 Chronic obstructive pulmonary disease with (acute) exacerbation (principal); F12.10 Cannabis abuse, uncomplicated; E11.9 Type 2 diabetes mellitus without complications; Z79.899 Other long term (current) drug therapy; Z98.890 Other specified postprocedural states
CPT/HCPCS: 36415; 71045; 80053; 83880; 84484; 85025; 93005; 94640; 96374; 99285; J2930; Z7610

== ENCOUNTER 2022-11-27 08:03 | Emergency (ER) | payer MEDICAID, OTHER ==
[~2022-11-27] VITALS: Ht 177.8 cm; Wt 71.0 kg
[~2022-11-27 08:03] MED LIST changes: +ALBU6.7H3 INH; -ALBU6.7H9 INH
[2022-11-27] MEDS ORDERED: IPRATROPIUM/ALBUTEROL 0.5-3(2.5)MG/3ML NEB HHN ONE (09:15)
[2022-11-27] MEDS ORDERED: PREDNISONE 20MG TABLET PO ONE (09:30)
[2022-11-27] MEDS ORDERED: AZIT250T12 MT (09:45)
[2022-11-27] MEDS ORDERED: MUPI1OIN4 TP (09:45)
[2022-11-27] MEDS ORDERED: CLOT24CR TP (09:45)
[2022-11-27] MEDS ORDERED: P50 MT (09:45)
[2022-11-27] MEDS ORDERED: KETOROLAC 60MG/2ML VIAL IM ONE (09:45)
[2022-11-27] MEDS ORDERED: ALBU6.7H3 INH (09:47)
[2022-11-27] MEDS: KETOROLAC 30MG/ML VIAL IM NR ×2 (10:30→11:11)
[2022-11-27] MEDS ORDERED: PREDNISONE 20MG TABLET PO NR (10:30)
[2022-11-27 11:11] VITALS: BP 129/104
== END 2022-11-27 11:45 | disposition home or self-care (01) ==
LOC: ER 08:03
DX: J44.1 Chronic obstructive pulmonary disease with (acute) exacerbation (principal); F12.10 Cannabis abuse, uncomplicated; E11.9 Type 2 diabetes mellitus without complications; Z79.899 Other long term (current) drug therapy; Z98.890 Other specified postprocedural states
CPT/HCPCS: 94640; 96372; 99283; J1885; J7512; Z7610

== ENCOUNTER 2023-01-11 11:43 | Emergency (ER) | payer MEDICAID ==
[~2023-01-11] VITALS: Ht 177.8 cm; Wt 72.2 kg
[~2023-01-11 11:43] MED LIST changes: +CLOT24CR TP; +MUPI1OIN4 TP
[2023-01-11 12:05] LABS: HEMOGLOBIN. 14.6 g/dL (14.0-18.0); MEAN CORPUSCULAR HEMOGLOBIN 31.2 pg (28.0-32.0); MEAN PLATELET VOLUME 9.5 fl (7.4-10.4); PLATELET 174 x1000/uL (130-400); RED BLOOD CELL COUNT 4.68 mill/uL (4.7-6.1); RED CELL DISTRIBUTION WIDTH 15.3 % (11.6-14.6)
[2023-01-11 12:12] LABS: CHLORIDE 103 mEq/L (98-107)
[2023-01-11 12:20] LABS: PROTHROMBIN TIME 10.4 sec (9.6-11.0)
[2023-01-11 12:47] LABS: PLATELET ESTIMATE NORMAL
[2023-01-11 13:07] LABS: CLARITY URINE CLEAR (CLEAR); COLOR URINE YELLOW (YELLOW); KETONES URINE TRACE (NEGATIVE); LEUKOCYTE ESTERASE URINE NEGATIVE (NEGATIVE); NITRITE URINE NEGATIVE (NEGATIVE); OCCULT BLOOD URINE NEGATIVE (NEGATIVE); PROTEIN URINE NEGATIVE (NEGATIVE)
[2023-01-11 13:31] VITALS: BP 128/83
[2023-01-11] MEDS ORDERED: IPRATROPIUM/ALBUTEROL 0.5-3(2.5)MG/3ML NEB HHN ONE ×2 (13:45→14:30)
[2023-01-11] MEDS ORDERED: PREDNISONE 20MG TABLET PO ONE (13:45)
[2023-01-11] MEDS ORDERED: IPRA4AER INH (14:48)
[2023-01-11] MEDS ORDERED: TUSSL MT (14:48)
[2023-01-11] MEDS ORDERED: AZIT500T8 MT (14:48)
[2023-01-11] MEDS ORDERED: P50 MT (14:48)
== END 2023-01-11 16:17 | disposition home or self-care (01) ==
LOC: ER 11:43
DX: J44.1 Chronic obstructive pulmonary disease with (acute) exacerbation (principal); F12.10 Cannabis abuse, uncomplicated; Z79.899 Other long term (current) drug therapy
CPT/HCPCS: 36415; 71045; 80053; 81003; 83880; 84484; 85025; 85610; 93005; 94640; 99285; J7512; Z7610

== ENCOUNTER 2023-01-29 11:01 | Emergency (ER) | payer MEDICAID ==
[~2023-01-29] VITALS: Ht 177.8 cm; Wt 70.0 kg
[~2023-01-29 11:01] MED LIST changes: +AZIT500T8 MT; +TUSSL MT
[2023-01-29 11:31] LABS: HEMATOCRIT. 40.6 % (42.0-52.0); HEMOGLOBIN. 13.9 g/dL (14.0-18.0); MEAN CORPUSCULAR HEMOGLOBIN 31.8 pg (28.0-32.0); MEAN CORPUSCULAR VOLUME 92.7 fL (80.0-94.0); PLATELET 161 x1000/uL (130-400); RED BLOOD CELL COUNT 4.38 mill/uL (4.7-6.1); RED CELL DISTRIBUTION WIDTH 14.8 % (11.6-14.6)
[2023-01-29 11:40] LABS: CLARITY URINE CLEAR (CLEAR); COLOR URINE YELLOW (YELLOW); KETONES URINE NEGATIVE (NEGATIVE); LEUKOCYTE ESTERASE URINE NEGATIVE (NEGATIVE); NITRITE URINE NEGATIVE (NEGATIVE); OCCULT BLOOD URINE NEGATIVE (NEGATIVE); PH URINE 7.5 (4.5-8.0); PROTEIN URINE NEGATIVE (NEGATIVE); SPECIFIC GRAVITY URINE 1.015 (1.005-1.030); UROBILINOGEN URINE 0.2 E.U./dL (0.2-1.0)
[2023-01-29 11:44] LABS: CHLORIDE 108 mEq/L (98-107)
[2023-01-29] MEDS ORDERED: ONDANSETRON HCL 4MG/2ML INJ IV STA (12:34)
[2023-01-29] MEDS ORDERED: MORPHINE SULFATE 4 MG/ML CPJ (NOT FOR IM USE) IV STA (12:34)
[2023-01-29] MEDS ORDERED: SODIUM CHLORIDE 0.9% 1,000 ML IV ONE (12:45)
[2023-01-29] MEDS ORDERED: ASPIRIN 325MG EC TABLET PO ONE (14:30)
[2023-01-29 16:30] VITALS: BP 128/88
[2023-01-29 18:40] LABS: PLATELET ESTIMATE NORMAL
== END 2023-01-29 17:16 | disposition left against medical advice (07) ==
LOC: ER 11:01
DX: R10.9 Unspecified abdominal pain (principal); R07.89 Other chest pain; E11.9 Type 2 diabetes mellitus without complications; Z79.899 Other long term (current) drug therapy; Z98.890 Other specified postprocedural states
CPT/HCPCS: 36415; 71045; 74176; 80053; 81003; 83690; 83880; 84484; 85025; 85379; 93005; 96361; 96374; 96375; 99285; J2270; J2405; J7030; Z7610

== ENCOUNTER 2023-02-12 05:44 | Emergency (ER) | payer MEDICAID ==
[~2023-02-12] VITALS: Ht 177.8 cm; Wt 70.4 kg
[2023-02-12] MEDS ORDERED: IPRATROPIUM/ALBUTEROL 0.5-3(2.5)MG/3ML NEB HHN ONE (06:15)
[2023-02-12] MEDS ORDERED: METHYLPREDNISOLONE SOD SUCC 125 MG/2 ML VIAL IV ONE (06:15)
[2023-02-12 06:30] LABS: HEMATOCRIT. 42.5 % (42.0-52.0); HEMOGLOBIN. 14.7 g/dL (14.0-18.0); MEAN CORPUSCULAR HEMOGLOBIN 32.1 pg (28.0-32.0); MEAN CORPUSCULAR VOLUME 92.7 fL (80.0-94.0); MEAN PLATELET VOLUME 9.2 fl (7.4-10.4); PLATELET 183 x1000/uL (130-400); RED BLOOD CELL COUNT 4.58 mill/uL (4.7-6.1); RED CELL DISTRIBUTION WIDTH 14.9 % (11.6-14.6)
[2023-02-12 06:34] LABS: PARTIAL THROMBOPLASTIN TIME 30.5 sec (23.4-31.0); PROTHROMBIN TIME 10.9 sec (9.6-11.0)
[2023-02-12 06:42] LABS: CHLORIDE 109 mEq/L (98-107)
[2023-02-12 07:54] LABS: PLATELET ESTIMATE NORMAL
[2023-02-12] MEDS ORDERED: IPRATROPIUM/ALBUTEROL 0.5-3(2.5)MG/3ML NEB HHN NR (08:00)
[2023-02-12 08:53] LABS: CLARITY URINE CLEAR (CLEAR); COLOR URINE YELLOW (YELLOW); KETONES URINE NEGATIVE (NEGATIVE); LEUKOCYTE ESTERASE URINE NEGATIVE (NEGATIVE); NITRITE URINE NEGATIVE (NEGATIVE); OCCULT BLOOD URINE NEGATIVE (NEGATIVE); PROTEIN URINE 1+ (NEGATIVE); SPECIFIC GRAVITY URINE 1.017 (1.005-1.030); UROBILINOGEN URINE 0.2 E.U./dL (0.2-1.0)
[2023-02-12] MEDS ORDERED: P20 PO (09:26)
[2023-02-12] MEDS ORDERED: DOXY100C5 PO (09:26)
[2023-02-12 09:30] VITALS: BP 122/80
== END 2023-02-12 09:30 | disposition home or self-care (01) ==
LOC: ER 05:44
DX: J44.1 Chronic obstructive pulmonary disease with (acute) exacerbation (principal); F12.10 Cannabis abuse, uncomplicated; Z79.899 Other long term (current) drug therapy; Z98.890 Other specified postprocedural states
CPT/HCPCS: 36415; 71045; 80053; 81003; 84484; 85025; 85610; 85730; 93005; 94640; 96374; 99285; J2930; Z7610; 94664

== ENCOUNTER 2023-02-28 08:07 | Emergency (ER) | payer MEDICAID ==
[~2023-02-28] VITALS: Ht 177.8 cm; Wt 71.0 kg
[~2023-02-28 08:07] MED LIST changes: +DOXY100C5 PO; +P20 PO
[2023-02-28 08:57] LABS: CHLORIDE 104 mEq/L (98-107)
[2023-02-28 09:00] LABS: HEMATOCRIT. 42.7 % (42.0-52.0); HEMOGLOBIN. 14.2 g/dL (14.0-18.0); MEAN CORPUSCULAR HEMOGLOBIN 31.3 pg (28.0-32.0); MEAN CORPUSCULAR VOLUME 93.8 fL (80.0-94.0); MEAN PLATELET VOLUME 9.7 fl (7.4-10.4); PLATELET 160 x1000/uL (130-400); RED BLOOD CELL COUNT 4.55 mill/uL (4.7-6.1); RED CELL DISTRIBUTION WIDTH 14.9 % (11.6-14.6)
[2023-02-28] MEDS ORDERED: METHYLPREDNISOLONE SOD SUCC 125MG/2ML (ACT-O-VIAL) IV ONE (09:15)
[2023-02-28] MEDS ORDERED: IPRATROPIUM/ALBUTEROL 0.5-3(2.5)MG/3ML NEB HHN ONE ×2 (09:15→10:30)
[2023-02-28] MEDS ORDERED: KETOROLAC 30MG/ML VIAL IV ONE (09:15)
[2023-02-28 10:10] LABS: BG BASE EXCESS 0.8 mmol/L (-2.0-2.0); BG CARBOXYHEMOGLOBIN 2.2 % (0.5-1.5); BG DEOXYHEMOGLOBIN 2.2 % (0.0-5.0); BG HCO3 ACT 24.4 mmol/L (22.0-26.0); BG METHEMOGLOBIN 0.3 % (0.0-1.5); BG OXYGEN SATURATION 97.7 % (92.0-98.5); BG OXYHEMOGLOBIN 95.3 % (94.0-97.0); BG PCO2 35.8 mmHg (35.0-45.0); BG PH 7.451 (7.350-7.450); BG PO2 89.5 mmHg (75.0-100.0); BG SAMPLE SITE RIGHT RADIAL; BG TOTAL HEMOGLOBIN 14.9 g/dL (12.0-18.0); BG VENT MODE NASAL CANNULA
[2023-02-28 10:14] VITALS: PULSE 85; RESP 20; O2SAT 100
[2023-02-28 10:34] VITALS: BP 127/82; TEMP 98.5
[2023-02-28 10:43] VITALS: PULSE 84; RESP 20; O2SAT 100
[2023-02-28] MEDS ORDERED: P20 MT (10:47)
[2023-02-28] MEDS ORDERED: AZIT250T12 MT (10:47)
[2023-02-28] MEDS ORDERED: IPRA4AER INH (10:47)
[2023-02-28] MEDS ORDERED: ALBU18HF2 IH (10:47)
[2023-02-28 11:18] LABS: PLATELET ESTIMATE NORMAL
== END 2023-02-28 11:00 | disposition home or self-care (01) ==
LOC: ER 08:07
DX: R06.02 Shortness of breath (principal); F12.10 Cannabis abuse, uncomplicated; J44.1 Chronic obstructive pulmonary disease with (acute) exacerbation; E11.9 Type 2 diabetes mellitus without complications; Z79.899 Other long term (current) drug therapy; Z98.890 Other specified postprocedural states
CPT/HCPCS: 80053; 83880; 85025; 84484; 36415; 71045; 94640; 82805; 82375; 96374; 96375; 99284; 36600; J1885; J2930; Z7610 ×3